=== PATIENT | female | born 1955 | race Caucasian/White ===

== ENCOUNTER 2018-12-31 17:21 | Emergency (ER) | payer OTHER ==
[~2018-12-31] VITALS: Ht 157.5 cm; Wt 69.2 kg
[~2018-12-31 17:21] MED LIST: ASPI81CT33 PO; BENA40TA17 PO; METF-1022 PO; PIOG45TA PO; SIMV20TA6 PO
[2018-12-31 17:33] VITALS: BP 151/93
--- NOTE | 2018-12-31 17:42 | NUR ---
Patient ambulated to bed 7 with family. RN evaluating patient at bedside.
--- NOTE | 2018-12-31 17:50 | NUR ---
PT BIB FAMILY TO THE ED WITH THE CHIEF C/O HEADACHE THAT RADIATES TO HER LEFT SIDE FOR FEW WEEKS. REPORTS DIZZINESS AND BLURRY VISION. HAS GOOD VISUAL ACUITY AT THIS TIME. REPORTS BEDING NAUSEATED. DENIES VOMITING OR DIARRHEA. DENIES FEVER. STATES PAIN OF 10/10 AT THIS TIME. BREATHING NORMALLY. FAMILY AT THE BEDSIDE.
--- NOTE | 2018-12-31 18:08 | NUR ---
PT BEING EVALUATED BY ER AT THIS TIME.
[2018-12-31] MEDS ORDERED: LIDOCAINE 1% 500 MG/50 ML VIAL INJ SCH (18:15)
[2018-12-31] MEDS ORDERED: HYDROcodone/APAP 5/325 MG 1 TAB TAB PO ONE (18:15)
[2018-12-31] MEDS ORDERED: LIDOCAINE MPF 1% - 5 mL VIAL 5 ML ONE (18:40)
--- NOTE | 2018-12-31 19:13 | NUR ---
REPORT GIVEN TO [employer] T[employer]OR RN FOR CONTINUITY OF CARE.
--- NOTE | 2018-12-31 19:14 | NUR ---
RECEIVED REPORT FROM AVEL ZIMMERMAN. ASSUMED CARE AT THIS TIME.
[2018-12-31 19:22] VITALS: BP 130/87
--- NOTE | 2018-12-31 19:22 | NUR ---
DISCHARGE PAPERS GIVEN TO PT. RX OF NORCO GIVEN. SIDE EFFECTS EXPLAINED. INSTRUCTED TO F/U WITH PCP AND WHEN TO RETURN TO ER. PT VERBALLIZED UNDERSTANDING OF DC INSTRUCTIONS. ALL QUESTIONS ANSWERED.
== END 2018-12-31 19:22 | disposition home or self-care (01) ==
LOC: MED 17:21
DX: G44.209 Tension-type headache, unspecified, not intractable (principal); M62.830 Muscle spasm of back; M54.2 Cervicalgia; E11.9 Type 2 diabetes mellitus without complications; I10 Essential (primary) hypertension; E78.5 Hyperlipidemia, unspecified; Z98.890 Other specified postprocedural states; Z79.82 Long term (current) use of aspirin; Z79.84 Long term (current) use of oral hypoglycemic drugs; Z79.899 Other long term (current) drug therapy
CPT/HCPCS: 20553; 99284; J2001

== ENCOUNTER 2022-02-14 11:35 | Emergency (ER) | payer OTHER ==
[~2022-02-14] VITALS: Ht 160 cm; Wt 74.8 kg
[~2022-02-14 11:35] MED LIST changes: -METF-1022 PO; +METF-1253 PO; -PIOG45TA PO; +PIOG45TA39 PO; +SIMV-30 PO; -SIMV20TA6 PO
[2022-02-14 11:50] VITALS: BP 140/74
--- NOTE | 2022-02-14 12:06 | NUR ---
PT AMBULATED TO BATHROOM WITH STEADY GAIT
[2022-02-14] MEDS ORDERED: NACL 0.9% 1,000 ML IV SCH (12:15)
[2022-02-14] MEDS ORDERED: KETOROLAC 30 MG/ML VIAL IVP ONE (12:15)
[2022-02-14 12:30] LABS: BASOPHILS % (AUTO) 0.8 % (0.0-2.0); EOSINOPHILS # (AUTO) 0.1 K/uL (0-0.4); EOSINOPHILS % (AUTO) 1.4 % (0.0-4.0); HEMATOCRIT 42.6 % (36-48); HEMOGLOBIN 14.6 g/dL (12.0-16.0); LYMPHOCYTES # (AUTO) 1.6 K/uL (2.5-16.5); LYMPHOCYTES % (AUTO) 30.3 % (20.5-51.1); MEAN CORPUSCULAR HEMOGLOBIN 37 pg (27-31); MEAN CORPUSCULAR HGB CONC 34 g/dL (33-37); MONOCYTES # (AUTO) 0.5 K/uL (0.8-1.0); MONOCYTES % (AUTO) 8.8 % (1.7-9.3); NEUTROPHILS # (AUTO) 3.1 K/uL (1.8-7.7); NEUTROPHILS % (AUTO) 58.7 % (42.2-75.2); PLATELET COUNT (AUTO) 334 K/uL (140-450); RED BLOOD CELL COUNT(AUTO) 3.91 MIL/uL (4.20-5.40); RED CELL DISTRIBUTION WIDTH 13.5 % (11.6-13.7); WHITE BLOOD COUNT (AUTO) 5.3 K/uL (4.8-10.8)
[2022-02-14 12:36] LABS: APPEARANCE,URINE CLEAR (CLEAR); BILIRUBIN,URINE NEGATIVE (NEGATIVE); BLOOD, URINE NEGATIVE (NEGATIVE); COLOR,URINE YELLOW (YELLOW); LEUKOCYTE ESTERASE ,URINE NEGATIVE (NEGATIVE); NITRITE, URINE NEGATIVE (NEGATIVE); PH,URINE 5.5 (5.0-9.0); UGLUCOSE 3+ (NEGATIVE)
[2022-02-14 12:41] LABS: ANION GAP 9.7 (8-16); CARBON DIOXIDE 26.6 mmol/L (21-32); CREATININE 1.3 mg/dL (0.6-1.3); POTASSIUM 4.3 mmol/L (3.5-5.1); TOTAL BILIRUBIN 0.7 mg/dL (0.0-1.0)
--- NOTE | 2022-02-14 13:15 | NUR ---
Dr Mendez at bedside for evaluation
--- NOTE | 2022-02-14 13:20 | NUR ---
66 y/o female bib daughter and c/o left sided flank pain x "a few weeks" worsening since Monday. Pain rated at 8/10, constant, radiates to lower abdomen. Abdomen is soft, flat, non-tender. Bowel sounds active x 4. States she has history of gall stones and acid reflux that worsens after eating. Also, c/o burning sensation with urination, denies hematuria. States she is generally constipated although had an episode of diarrhea yesterday. Denies N/V, fever, chills, sob, or cp. pmh: chronic kidney dysfunction, HTN, DM, gerd, Thrombocytopenia (on oral chemo x 5 years), gallstones NKA
[2022-02-14] MEDS ORDERED: NAPR-1704 PO (14:02)
[2022-02-14] MEDS ORDERED: PYR100 PO (14:02)
[2022-02-14] MEDS ORDERED: ACET-10509 PO (14:02)
[2022-02-14 14:34] VITALS: BP 110/69
--- NOTE | 2022-02-14 14:34 | NUR ---
Patient discharged with v/s stable. Written and verbal after care instructions about Dysuria, Abdominal pain given and explained. Patient alert, oriented and verbalized understanding of instructions. Ambulatory with steady gait. All questions addressed prior to discharge. ID band removed. Patient advised to follow up with PMD. Rx of Tylenol, Pyridium, Naproxen given. Patient educated on indication of medication including possible reaction and side effects. Opportunity to ask questions provided and answered.
== END 2022-02-14 14:34 | disposition home or self-care (01) ==
LOC: MED 11:35
DX: R30.0 Dysuria (principal); I10 Essential (primary) hypertension; E11.9 Type 2 diabetes mellitus without complications; K21.9 Gastro-esophageal reflux disease without esophagitis; N21.0 Calculus in bladder; Z98.890 Other specified postprocedural states
CPT/HCPCS: 36415; 74176; 80053; 81003; 83690; 85025; 96361; 96374; 99284; J1885; J7030

== ENCOUNTER 2022-02-23 05:53 | Day surgery (SDC) | payer OTHER ==
[2022-02-22 11:23] LABS: BASOPHILS % (AUTO) 0.7 % (0.0-2.0); EOSINOPHILS # (AUTO) 0.1 K/uL (0-0.4); EOSINOPHILS % (AUTO) 1.9 % (0.0-4.0); HEMATOCRIT 38.6 % (36-48); HEMOGLOBIN 13.2 g/dL (12.0-16.0); LYMPHOCYTES # (AUTO) 1.4 K/uL (2.5-16.5); MEAN CORPUSCULAR HEMOGLOBIN 38 pg (27-31); MEAN CORPUSCULAR HGB CONC 34 g/dL (33-37); MEAN CORPUSCULAR VOLUME 109.4 fL (80-94); MONOCYTES # (AUTO) 0.3 K/uL (0.8-1.0); NEUTROPHILS # (AUTO) 2.6 K/uL (1.8-7.7); NEUTROPHILS % (AUTO) 60.4 % (42.2-75.2); PLATELET COUNT (AUTO) 287 K/uL (140-450); RED BLOOD CELL COUNT(AUTO) 3.52 MIL/uL (4.20-5.40); RED CELL DISTRIBUTION WIDTH 13.7 % (11.6-13.7); WHITE BLOOD COUNT (AUTO) 4.4 K/uL (4.8-10.8)
[2022-02-22 11:32] LABS: ALBUMIN 4.1 g/dL (3.4-5.0); ANION GAP 11.8 (8-16); CARBON DIOXIDE 29.9 mmol/L (21-32); CREATININE 1.2 mg/dL (0.6-1.3); POTASSIUM 4.7 mmol/L (3.5-5.1); TOTAL BILIRUBIN 0.4 mg/dL (0.0-1.0)
[~2022-02-23] VITALS: Ht 152.4 cm; Wt 85.7 kg
[~2022-02-23 05:53] MED LIST changes: +ACET-10509 PO; +NAPR-1704 PO; +PYR100 PO
[2022-02-23] MEDS ORDERED: LIDOCAINE/EPI MPF 1%1:200000 30 ML VIAL INJ ONE (07:26)
[2022-02-23] MEDS ORDERED: BUPIVACAINE MPF 0.25% 10 ML VIAL INJ ONE (07:27)
[2022-02-23] MEDS ORDERED: fentaNYL citrate 0.05 MG/ML VIAL ONE (08:25)
[2022-02-23] MEDS ORDERED: PROPOFOL 200 MG/20 ML VIAL IV ONE (09:32)
[2022-02-23] MEDS ORDERED: ROCURONIUM 50 MG/5 ML VIAL IV ONE (09:32)
[2022-02-23] MEDS ORDERED: KETOROLAC 30 MG/ML VIAL ONE (09:33)
[2022-02-23] MEDS ORDERED: ONDANSETRON 4 MG/2 ML VIAL ONE (09:36)
[2022-02-23] MEDS ORDERED: NEOSTIGMINE 1:1000 10 MG/10 ML VIAL ONE (09:54)
[2022-02-23] MEDS ORDERED: GLYCOPYRROLATE 0.2 MG/ML VIAL ONE ×5 (09:54)
[2022-02-23] MEDS ORDERED: HYDROcodone/APAP 5/325 MG 1 TAB TAB PO PRN (10:15)
[2022-02-23] MEDS ORDERED: MORPHINE SULFATE 2 MG/ML SYR IVP PRN (10:15)
[2022-02-23] MEDS ORDERED: ONDANSETRON 4 MG/2 ML VIAL IV PRN (10:15)
[2022-02-23] MEDS ORDERED: HYDROmorphone 1 MG/ML AMP IVP PRN (10:15)
[2022-02-23] MEDS ORDERED: NACL 0.9% 1,000 ML IV SCH (10:15)
[2022-02-23] MEDS ORDERED: MORPHINE SULFATE 4 MG/ML SYR IV PRN (10:15)
[2022-02-23] MEDS ORDERED: METOCLOPRAMIDE 10 MG/2 ML INJ VIAL IVP PRN (10:17)
[2022-02-23] MEDS ORDERED: hydrALAZINE 20 MG/ML VIAL IVP PRN (10:17)
[2022-02-23] MEDS ORDERED: LABETALOL 20 MG/4 ML VIAL IVP PRN (10:17)
[2022-02-23] MEDS: HYDROmorphone 1 MG/ML AMP IVP PRN ×4 (10:30→11:02)
[2022-02-23] MEDS ORDERED: HYDROmorphone PFS 2 MG/ML SYR ONE (10:34)
== END 2022-02-23 12:26 | disposition home or self-care (01) ==
LOC: MDS 05:53 → MMU 05:54 → MDS 12:26
PROVIDERS: ATTEND Surgery
DX: K80.10 Calculus of gallbladder with chronic cholecystitis without obstruction (principal); I10 Essential (primary) hypertension; E11.9 Type 2 diabetes mellitus without complications; K21.9 Gastro-esophageal reflux disease without esophagitis; M19.90 Unspecified osteoarthritis, unspecified site; G43.909 Migraine, unspecified, not intractable, without status migrainosus; Z20.822 Contact with and (suspected) exposure to COVID-19; Z79.899 Other long term (current) drug therapy
CPT/HCPCS: 36415; 47562; 71045; 80053; 82374; 85025; 86886; 86900; 86901; 87426; 88304; J0690; J1170; J1885; J2001; J2405; J2704; J2710; J3010; J3490; J7030; J7060

== ENCOUNTER 2022-12-05 21:35 | Emergency (ER) | payer OTHER ==
[~2022-12-05] VITALS: Ht 154.9 cm; Wt 60.8 kg
[2022-12-05 22:11] VITALS: BP 138/98
--- NOTE | 2022-12-05 22:30 | NUR ---
Patient ambulated to bed 9 with daughter at bedside.
--- NOTE | 2022-12-05 22:45 | NUR ---
Dr. Sotelo examining patient.
[2022-12-05 23:10] LABS: BASOPHILS % (AUTO) 0.5 % (0.0-2.0); EOSINOPHILS # (AUTO) 0.1 K/uL (0-0.4); EOSINOPHILS % (AUTO) 1.5 % (0.0-4.0); HEMOGLOBIN 11.3 g/dL (12.0-16.0); LYMPHOCYTES # (AUTO) 1.9 K/uL (2.5-16.5); MEAN CORPUSCULAR HEMOGLOBIN 39 pg (27-31); MEAN CORPUSCULAR HGB CONC 35 g/dL (33-37); MEAN CORPUSCULAR VOLUME 110.8 fL (80-94); MONOCYTES # (AUTO) 0.3 K/uL (0.8-1.0); MONOCYTES % (AUTO) 7.2 % (1.7-9.3); NEUTROPHILS # (AUTO) 1.9 K/uL (1.8-7.7); NEUTROPHILS % (AUTO) 45.8 % (42.2-75.2); PLATELET COUNT (AUTO) 224 K/uL (140-450); RED BLOOD CELL COUNT(AUTO) 2.88 MIL/uL (4.20-5.40); RED CELL DISTRIBUTION WIDTH 17.5 % (11.6-13.7); WHITE BLOOD COUNT (AUTO) 4.2 K/uL (4.8-10.8)
[2022-12-05 23:24] LABS: APPEARANCE,URINE CLEAR (CLEAR); BILIRUBIN,URINE NEGATIVE (NEGATIVE); BLOOD, URINE NEGATIVE (NEGATIVE); COLOR,URINE YELLOW (YELLOW); LEUKOCYTE ESTERASE ,URINE NEGATIVE (NEGATIVE); NITRITE, URINE NEGATIVE (NEGATIVE); UGLUCOSE NEGATIVE (NEGATIVE)
[2022-12-05 23:24] LABS: PROTHROMBIN TIME 10.4 secs (10.8-13.4)
[2022-12-05 23:26] LABS: ALBUMIN 3.9 g/dL (3.4-5.0); ANION GAP 12.7 (8-16); CARBON DIOXIDE 25.6 mmol/L (21-32); CREATININE 0.7 mg/dL (0.6-1.3); POTASSIUM 4.3 mmol/L (3.5-5.1); TOTAL BILIRUBIN 0.8 mg/dL (0.0-1.0)
--- NOTE | 2022-12-05 23:32 | NUR ---
Patient is a known case of CVA (Hemorrhagic Stroke, Right) last 2021 who came in due to headache (generalized, pressure, 10/10). Patient was noted to have speech, comprehension and memory difficulties as well as intermittent left neck swelling since the CVA. Tylenol and Ibuprofen unable to resolve headache.
[2022-12-05] MEDS ORDERED: NACL 0.9% 1,000 ML IV ONE (23:45)
[2022-12-05] MEDS ORDERED: ACETAMINOPHEN 325 MG TAB PO ONE (23:45)
--- NOTE | 2022-12-06 00:37 | NUR ---
Pt taken to CT for imaging.
--- NOTE | 2022-12-06 01:07 | NUR ---
Patient back from radiology.
[2022-12-06] MEDS ORDERED: diphenhydrAMINE 50 MG/ML VIAL IVP ONE (03:20)
[2022-12-06] MEDS ORDERED: METOCLOPRAMIDE 10 MG/2 ML INJ VIAL IVP ONE (03:20)
[2022-12-06] MEDS ORDERED: MICO15CR VG (05:25)
[2022-12-06] MEDS ORDERED: DIPH25TA53 PO (06:25)
[2022-12-06] MEDS ORDERED: ACET-10509 PO (06:25)
--- NOTE | 2022-12-06 06:30 | NUR ---
Patient discharged with v/s stable. Written and verbal after care instructions given and explained. Patient alert, oriented and verbalized understanding of instructions. Ambulatory with steady gait. All questions addressed prior to discharge. ID band removed. Patient advised to follow up with PMD. Rx of Monistat given. Patient educated on indication of medication including possible reaction and side effects. Opportunity to ask questions provided and answered.
[2022-12-06 06:36] VITALS: BP 143/92
== END 2022-12-06 06:30 | disposition home or self-care (01) ==
LOC: MED 21:35
DX: R51.9 Headache, unspecified (principal); R30.0 Dysuria; I67.1 Cerebral aneurysm, nonruptured; E11.9 Type 2 diabetes mellitus without complications; I10 Essential (primary) hypertension; Z79.4 Long term (current) use of insulin; Z79.899 Other long term (current) drug therapy
CPT/HCPCS: 36415; 70450; 70496; 80053; 81003; 85025; 85610; 85730; 96361; 96374; 96375; 99285; J1200; J2765; J7030; Q9967